=== PATIENT | female | born 2000 | race Caucasian/White ===

== ENCOUNTER 2021-10-04 14:39 | Outpatient (CLI) | payer BC, SELFPAY ==
--- NOTE | 2021-10-04 15:27 | ECG_ITS ---
Measurements Intervals [place] Rate: 68 P: 48 [place]: 127 QRS: 74 QRSD: 85 T: 45 QT: 357 QTc: 381 Interpretive Statements SINUS RHYTHM NORMAL ECG Electronically Signed On 10-04-2021 15:40:19 [employer] by Bertin Gibbs D.O.
[2021-10-04 15:55] LABS: Hematocrit 36.1 % (37.0-47.0); Hemoglobin 12.1 g/dL (12.0-15.0); Mean Corpuscular HGB Conc 33.5 g/dl (32-36); Mean Corpuscular Hemoglobin 27.9 pg (26-34); Mean Corpuscular Volume 83.2 fl (80-100); Mean Platelet Volume 8.7 fl (7.4-10.4); Platelet Count Result 291 k/mm3 (150-375); Red Blood Count 4.34 M/mm3 (4.2-5.4); Red Cell Distribution Width 12.4 % (11.5-14.5)
[2021-10-04 16:09] LABS: Alanine Aminotransferase 15 U/L (4-35); Albumin Level 4.5 g/dL (3.5-5.1); Alkaline Phosphatase 54 U/L (38-126); Anion Gap 9 mmol/L (8-16); Aspartate Amino Transferase 25 U/L (14-36); Bilirubin,Total 0.5 mg/dL (0.2-1.3); Blood Urea Nitrogen 12 mg/dL (7-17); Calcium 9.4 mg/dL (8.4-10.2); Carbon Dioxide 22 mmol/L (22-30); Chloride 103 mmol/L (98-107); Estimated Glomerular Filt Rate > 60; Glucose 87 mg/dL (65-110); Potassium 4.1 mmol/L (3.4-5.0); Sodium 134 mmol/L (137-145)
[2021-10-04 16:57] LABS: Free T4 Free Thyroxine 1.03 ng/mL (0.78-2.19)
[2021-10-08 08:28] LABS: Vitamin D 1,25 (OH)2 Total 35 pg/mL (18-72); Vitamin D2 1,25 (OH)2 <8 pg/mL; Vitamin D3 1,25 (OH)2 35 pg/mL
== END 2021-10-04 14:40 | disposition home or self-care (01) ==
PROVIDERS: PCP Family Medicine; Visit Provider Physician Assistant
DX: R53.83 Other fatigue (principal); R63.0 Anorexia; R07.9 Chest pain, unspecified; E55.9 Vitamin D deficiency, unspecified
CPT/HCPCS: 36415; 80053; 82607; 82652; 84439; 84443; 85027; 93005

== ENCOUNTER 2024-05-19 16:26 | Outpatient (CLI) | payer BC, SELFPAY ==
[2024-05-19 16:43] LABS: Hematocrit 42.1 % (37.0-47.0); Mean Corpuscular HGB Conc 35.6 g/dl (32-36); Mean Corpuscular Volume 84.2 fl (80-100); Mean Platelet Volume 8.2 fl (7.4-10.4); Platelet Count Result 284 k/mm3 (150-375); Red Cell Distribution Width 12.6 % (11.5-14.5); White Blood Count 7.6 K/mm3 (4.5-10.0)
[2024-05-19 17:21] LABS: Vitamin D 25 Hydroxy 35.9 ng/mL
== END 2024-05-19 16:27 | disposition home or self-care (01) ==
LOC: ANHLAB 16:27
PROVIDERS: PCP Family Medicine; Visit Provider Physician Assistant Medical
DX: F41.9 Anxiety disorder, unspecified (principal); E55.9 Vitamin D deficiency, unspecified; R53.83 Other fatigue
CPT/HCPCS: 36415; 82306; 84443; 85027

== ENCOUNTER 2024-10-22 11:52 | Outpatient (CLI) | payer BC, SELFPAY ==
--- NOTE | 2024-10-22 12:02 | ECG_ITS ---
Test Date: 2024-10-22 12:14:46 Measurements Intervals [place] Rate: 79 P: 56 SD: 137 QRS: 72 QRSD: 89 T: 50 QT: 352 QTc: 404 Interpretive Statements SINUS RHYTHM WITH SINUS ARRHYTHMIA No previous ECG available for comparison Electronically Signed On 10-22-2024 13:01:37 RECEP by Rosanne Valladares M.D.
== END 2024-10-22 11:53 | disposition home or self-care (01) ==
LOC: ANHLAB 11:55 → ANHCARD 11:57
PROVIDERS: PCP Family Medicine; Visit Provider Student in an Organized Health Care Education/Training Program
DX: R07.9 Chest pain, unspecified (principal)
CPT/HCPCS: 93005